=== PATIENT | female | born 1960 | race Caucasian/White ===

== ENCOUNTER 2024-08-26 22:44 | Emergency (ER) | payer MEDICARE, OTHER, SELFPAY ==
--- OUTSIDE RECORDS SUMMARY | 2023-04-25 07:00 | XMS_ITS | Continuity of Care Document ---
Author Organization [facility] Address [address] [place] [address] Phone Care Team Providers Care Store Clerk Name Role Phone Srinivas Lyons MD Unavailable Unavailable Procedures Procedure Date Echo Tthrc R-T 2D -+M-Mode Rest&Strs Con t Ecg Advance Directives Directive Yes / No Effective Date File Name No Information Encounters Encounter Description Practice Location Reason(s) For Visit Diagnoses Date Provider [facility], [address], [place], [place], [id number], tel:[phone] [facility] Chest pain [address], [place], [place], [id number], [place]. tel:[phone] Family History Family Member Type Diagnosis Age At Onset No Information Payers Payer name Insurance type Covered alliance party ID Authoriza tion(s) [employer] National Claims No [facility] [id number] Social History Type Description Quantity Date Captured Comments Alcohol Use Details Unknown Caffeine Use Details Unknown Tobacco Use Status No Information Smoking Status No Information Sex Female Chief Complaint And Reason For Visit No Information History Of Present Illness Encounter Date Complaint History Of Prese nt Illness No Information Instructions Date Instruction Additional Infor mation No Information Assessments Type Assessment Date No Information
--- NOTE | 2024-08-27 01:22 | XR_ITS ---
PROCEDURE INFORMATION: Exam: XR Left Foot Exam date and time: 08/27/2024 1:39 AM Age: 64 years old Clinical indication: Injury or trauma; Fall; Sprain or strain; Ankle and foot; Left; Additional info: Fall 4th/5th metatarsal pain TECHNIQUE: Imaging protocol: Radiologic exam of the left foot. Views: 3 or more views. COMPARISON: CR XR ANKLE LT MIN 3V 08/27/2024 1:39 AM FINDINGS: Bones/joints: Normal. Soft tissues: Normal. IMPRESSION: No acute findings.
--- NOTE | 2024-08-27 01:22 | XR_ITS ---
PROCEDURE INFORMATION: Exam: XR Left Ankle Exam date and time: 08/27/2024 1:39 AM Age: 64 years old Clinical indication: Injury or trauma; Fall; Sprain or strain; Ankle and foot; Left; Additional info: Fall lateral foot and ankle pain TECHNIQUE: Imaging protocol: Radiologic exam of the left ankle. Views: 3 or more views. COMPARISON: CR XR ANKLE LT MIN 3V 08/27/2024 1:39 AM FINDINGS: Bones/joints: Normal. Soft tissues: Normal. IMPRESSION: No acute findings.
[2024-08-27 01:24] VITALS: BP 157/97; PULSE 83; RESP 17; TEMP 36.4; O2SAT 98; BMI 36.6
--- NOTE | 2024-08-27 01:44 | ED_ITS ---
Discharge Plan Disposition Patient Disposition: Home, Self-Care Condition: Good Referrals Follow up/Referrals: Provider,Referral, MD [Primary Care Provider, Medical] - See instructions Joceline Neri DPM [Staff Physician, Podiatry] - See instructions Referral Note: high L foot pain seen in ER, needs close follow up b/c she goes back to [place] beginning of september Activity Restrictions/Add. Instructions Additional Instructions/Restrictions: You were evaluated in the ER and are believed to be appropriate for discharge at this time. Wear the walking boot and use the crutches to get around. Do not put weight on the foot if you are having pain. Take Tylenol or ibuprofen if needed for pain, do not exceed the recommended dose on the bottle. Drink water and eat a small snack each time you take these medications to avoid side effects. Call the podiatry office in the morning and make an appointment for close outpatient follow-up, tell them that you had an ER evaluation and need to be rechecked before traveling back to [place] at the beginning of September. Follow-up with your primary care doctor as well. Return to the ER with any new, worsening, or otherwise concerning symptoms. Clinical Impressions Clinical Impression: Foot pain, left Print Language Print Language: [place] Discharge ED Provider: Osvaldo Da Silva General Adult HPI General Chief complaint: Fall Stated complaint: AO 7-13 fell down stairs,left foot and ankle Time Seen by Provider: 08/27/24 01:18 Mode of Arrival: Wheelchair Source of Information: Patient Description of Symptoms (Recalled from ER Triage Doc. by RN): pt presents to the Ed d/t complaints of falling at 1530. pt denies hitting head or losing consciouness. pt states she landed on bottom. pt compalins of left ankle pain. History of Present Illness HPI narrative: 64-year-old female with a history of hypertension presents to the ER for complaints of left foot and ankle pain after tripping down 2 steps around 3:30 PM. Patient reports she stumbled down the last 2 steps outside and started to fall, she caught herself on a retaining wall so she did not actually fall to the ground initially, but ended up landing on her bottom. She did not strike her head or lose consciousness, she does not take any blood thinners. She states she has been unable to bear weight since the time of the injury and has not been able to ambulate on the foot. She describes pain in the top and outer portion of the left foot, no numbness, tingling, or weakness. No other complaints or concerns. Related Data Allergies Allergy/AdvReac Type Severity Reaction Status Date / Time latex Allergy Anaphylaxis Verified 08/27/24 01:28 [facility] Disclaimer: The information contained in this section may have been updated after the patient was seen, as this information can be updated by other users. Social History Smoking Status: Never smoker alcohol intake: never current occupational status: other Travel in the last 8 weeks?: None ROS Obtained: Yes Systems reviewed as appropriate & no additional complaints except as documented Per HPI Physical Exam General General appearance: alert, in no apparent distress and obese Head Head exam: atraumatic and normocephalic Eye Eye exam: Present PERRL and EOMI ENT ENT exam: Present mucous membranes moist Neck Neck exam: Present normal inspection and full ROM Chest Chest inspection: Present symmetric chest wall rise Respiratory Respiratory exam: Absent respiratory distress or stridor Cardiovascular Cardiovascular exam: Present regular rate and normal rhythm Extremities Exam Extremities exam: Present tenderness (Proximal 4th and 5th metatarsal areas without deformity or step-off, mild associated bruising), joint swelling (Small swelling left ankle) and other (No tenderness of the medial or lateral malleolus, neurovascularly intact.); Absent full ROM (Limited range of motion of the left foot and ankle secondary to pain) Neurological Exam Neurological exam: Present alert and oriented X3; Absent motor sensory deficit Psychiatric Psychiatric exam: Present normal affect and normal mood Skin Skin exam: Present warm and dry Medical Decision Making Medical Records Screening: Per USPSTF and CDC recommendations, given the prevalence of disease in our region, it is our hospital?s policy to screen for HIV and viral Hepatitis for all patients aged 18 and over and those with ongoing risk factors. Yovany Inquiry Pt receiving controlled substance: No Vital Signs: 08/27/24 01:24 08/27/24 02:36 Temperature 97.6 F 97.6 F Temperature Source Oral Pulse Rate 88 Pulse Rate [Right Radial] 83 Respiratory Rate 17 17 Blood Pressure 157/97 H Blood Pressure [Right Arm] 157/97 H Blood Pressure Mean [Right Arm] 117 Blood Pressure Position [Right Arm] Supine 02 Sat by Pulse Oximetry 98 Oxygen Delivery Method Room Air Room Air Orders (Tests/Meds): ORDERS Category Date Time Status Ankle XR - Left minimum 3 Views [XR ankle LT min 3V] Exams 08/27/24 01:22 Taken Stat Foot XR left minimum 3 views [XR foot LT min 3V] Stat Exams 08/27/24 01:22 Taken Medical Decision Narrative: In summary, this 64-year-old female with comorbidities described in the HPI presents to the emergency department today with left foot pain after mechanical fall. On initial evaluation patient is hemodynamically stable, afebrile, overall well-appearing, physical exam is only notable for tenderness over the left lateral foot without deformity or step-off, minimal swelling neurovascularly intact. Differential diagnosis includes but is not limited to fracture, dislocation, sprain, strain, no evidence of neurovascular injury though this was also considered. Based on these concerns, I ordered x-ray imaging left foot and ankle. Patient is of advanced age so I had considered the possibility of intracranial or cervical spine injury when she initially reported a fall, however she did not actually fall all the way to the ground and caught herself on a retaining wall, slowly lowering herself without ever striking her head. I do not believe CT imaging of the head or neck are indicated at this time. Patient is not requesting any pain meds though they were offered. X-ray foot and ankle personally interpreted does not demonstrate acute osseous injury, radiology read pending at this time. Radiology reads are delayed at this time and patient would like to be discharged possible. I discussed the findings with her based on my personal interpretation, since she is still unable to bear weight I recommended walking boot for immobilization stabilization as well as crutches to be nonweightbearing at this time. She is agreeable to this. I informed her that I would call if there is anything acute for which she needs to present back to the ER such as a fracture that would require splinting. She is agreeable to this. I placed referral to Dr. Neri for close outpatient follow-up. Patient reports she is visiting from [place] and is only here until the beginning of September so I encouraged her to call their office first thing in the morning for follow-up reevaluation. She is agreeable to this. Patient was given instructions on symptomatic management, follow up instructions, and return precautions for the emergency department. Patient indicated understanding and was discharged in stable condition. Critical Care Critical Care Time Critical Care Time: No
[2024-08-27 02:36] VITALS: BP 157/97; PULSE 88; RESP 17; TEMP 36.4; O2SAT 99
--- NOTE | 2024-08-27 03:03 | PC.NURSE ---
pt was up for discharge and left without D/C paper work, this RN called to make sure she had number for followup. Patient given the number and verbalized she understood the importance of calling for followup
== END 2024-08-27 03:05 | disposition home or self-care (01) ==
PROVIDERS: Emergency Provider Emergency Medicine
DX: M79.672 Pain in left foot (principal)
CPT/HCPCS: 73610; 73630; 99283